=== PATIENT | female | born 1955 | race African-American/Black ===

== ENCOUNTER 2018-04-03 14:16 | Emergency (ER) | payer BC ==
[~2018-04-03] VITALS: Ht 165.1 cm; Wt 77.0 kg
[~2018-04-03 14:16] MED LIST: IOHEXOL-350 100 ML BOTTLE ONE
[2018-04-03] MEDS ORDERED: KETOROLAC 30MG/ML VIAL IV ONE (15:30)
[2018-04-03 15:37] LABS: HEMATOCRIT. 36.5 % (36.0-48.0); HEMOGLOBIN. 11.9 g/dL (12.0-16.0); MEAN CORPUSCULAR HEMOGLOBIN 23.6 pg (28.0-32.0); MEAN CORPUSCULAR VOLUME 72.6 fL (81.0-99.0); MEAN PLATELET VOLUME 9.8 fl (7.4-10.4); PLATELET 324 x1000/uL (130-400); RED BLOOD CELL COUNT 5.03 mill/uL (4.2-5.4); RED CELL DISTRIBUTION WIDTH 16.6 % (11.6-14.6)
[2018-04-03 16:06] LABS: PLATELET ESTIMATE NORMAL
[2018-04-03 16:31] LABS: CHLORIDE 109 mEq/L (98-107)
[2018-04-03 18:16] VITALS: BP 151/85
[2018-04-03] MEDS ORDERED: ACETAMINOPHEN 325MG TABLET PO ONE (18:30)
== END 2018-04-03 18:44 | disposition home or self-care (01) ==
LOC: ER 14:16
DX: S10.81XA Abrasion of other specified part of neck, initial encounter (principal); S80.211A Abrasion, right knee, initial encounter; S40.012A Contusion of left shoulder, initial encounter; S70.02XA Contusion of left hip, initial encounter; S50.02XA Contusion of left elbow, initial encounter; R73.03 Prediabetes; F41.9 Anxiety disorder, unspecified; Z90.710 Acquired absence of both cervix and uterus; V43.52XA Car driver injured in collision with other type car in traffic accident, initial encounter; Y93.89 Activity, other specified; Y92.488 Other paved roadways as the place of occurrence of the external cause
CPT/HCPCS: 36415; 70498; 73030; 73080; 73502; 73560; 80048; 81025; 85025; 96374; 99285; J1885; Q9967; Z7610